=== PATIENT | female | born 1995 | race Caucasian/White ===

== ENCOUNTER 2021-02-12 01:10 | Outpatient (CLI) | payer BC, OTHER | END 2021-02-12 02:36 | disposition home or self-care (01) | LOC: GENOP 01:10 | DX: O99.891 Other specified diseases and conditions complicating pregnancy (principal); R10.10 Upper abdominal pain, unspecified; O24.415 Gestational diabetes mellitus in pregnancy, controlled by oral hypoglycemic drugs; O99.283 Endocrine, nutritional and metabolic diseases complicating pregnancy, third trimester; E03.9 Hypothyroidism, unspecified; O99.353 Diseases of the nervous system complicating pregnancy, third trimester; G43.909 Migraine, unspecified, not intractable, without status migrainosus; O99.013 Anemia complicating pregnancy, third trimester; D64.9 Anemia, unspecified; Z3A.35 35 weeks gestation of pregnancy | CPT/HCPCS: G0463 ==

== ENCOUNTER 2021-03-12 07:30 | Inpatient (IN) | payer OTHER ==
[~2021-03-12] VITALS: Ht 180.3 cm; Wt 140.6 kg
[2021-03-12] MEDS ORDERED: PRENATABS FA T1 EACH PO (11:07)
[2021-03-12] MEDS ORDERED: COLACE100 MG PO ×2 (11:07→13:36)
[2021-03-12] MEDS ORDERED: FERROUS SULFAT325 M2 PO (11:07)
[2021-03-12] MEDS ORDERED: PERCOCET 5/325 T1 EA PO (13:36)
[2021-03-12] MEDS ORDERED: IBUPROFEN800 MG PO (13:36)
[2021-03-12] MEDS ORDERED: HEMOCYTE324 MG PO (13:36)
== END 2021-03-13 16:34 | disposition home or self-care (01) | DRG 788 ==
LOC: OB 10:27
PROVIDERS: ADMIT Obstetrics & Gynecology
PROC: 4A1HXCZ Monitoring of Products of Conception, Cardiac Rate, External Approach (ICD-10-PCS; 2021-03-12)
PROC: 3E02340 Introduction of Influenza Vaccine into Muscle, Percutaneous Approach (ICD-10-PCS; 2021-03-12)
PROC: 10D00Z1 Extraction of Products of Conception, Low, Open Approach (ICD-10-PCS; principal; 2021-03-12 09:05)
DX: O10.92 Unspecified pre-existing hypertension complicating childbirth (principal); O99.214 Obesity complicating childbirth; E66.9 Obesity, unspecified; O99.284 Endocrine, nutritional and metabolic diseases complicating childbirth; Z23 Encounter for immunization; E03.9 Hypothyroidism, unspecified; O34.211 Maternal care for low transverse scar from previous cesarean delivery; O99.824 Streptococcus B carrier state complicating childbirth; Z3A.39 39 weeks gestation of pregnancy; Z37.0 Single live birth; Z90.49 Acquired absence of other specified parts of digestive tract; Z83.3 Family history of diabetes mellitus; Z82.49 Family history of ischemic heart disease and other diseases of the circulatory system
CPT/HCPCS: 36415; 81001; 85014; 85018; 85025; 90715; C9113; J0690; J1885; J2274; J2405; J2590; J2795; J3010; J7120; U0002